=== PATIENT | female | born 1995 | race Caucasian/White ===

== ENCOUNTER → 2016-07-25 | Outpatient (CLI) | payer BC | LOC: M SMT 08:53 | PROVIDERS: ATTEND Specialist | DX: N91.1 Secondary amenorrhea (principal) ==

== ENCOUNTER → 2016-07-28 | Outpatient (CLI) | payer BC ==
[~2016-07-28] MED LIST: HYDR-3713 PO
== END ==
LOC: M SMT 08:03
PROVIDERS: ATTEND Specialist
DX: N91.1 Secondary amenorrhea (principal)

== ENCOUNTER → 2016-07-31 | Day surgery (SDC) | payer BC ==
[~2016-07-31] VITALS: Ht 165.1 cm; Wt 57.2 kg
[~2016-07-31] MED LIST changes: +ACETAMINOPHEN 500 MG TAB PO ONE; +ACETYLCHOLINE OPHTH SOLN 1% 2ML (MIOCHOL-E) As Ordered ONE; +BALANCED SALT IRRIGATION SOLUTION 500ML BAG (FOR OR EYE MACHINE) As Ordered ONE; +CEFUROXIME 1MG/0.1ML INTRACAMERAL INJ As Ordered ONE; +HEALON DUET (HEALON 10MG/ML 0.55ML & HEALON ENDOCOAT 30MG/ML 0.85ML) As Ordered ONE; +KETOROLAC 60 MG/2 ML VIAL (J1885) As Ordered ONE; +LIDOCAINE 0.75%/EPINEPHRINE 0.025% IN BSS 1ML SYR INTRACAMERAL (OR ONLY) As Ordered ONE; +LIDOCAINE 2% INJ 100 MG/5 ML SDV (FOR ANES.) As Ordered ONE; +LR 1,000 ML IV ONE; +LR 1,000 ML IV SCH; +METOCLOPRAMIDE INJ 10MG/2ML VIAL (J2765) As Ordered ONE; +MIDAZOLAM INJ 2 MG/2 ML VIAL (J2250) As Ordered ONE; +ONDANSETRON 4MG/2ML VIAL (J2405) As Ordered ONE; +POVIDONE-IODINE 5% OPHTH PREP SOL 30ML As Ordered ONE; +PROPOFOL 200 MG/20 ML VIAL As Ordered ONE; +dexameTHASONE 4 MG/ML 1ML VIAL (J1100) As Ordered ONE; +fentaNYL 100 MCG/2 ML INJECTION (J3010) As Ordered ONE
[2016-07-31 15:45] VITALS: BP 107/64
--- NOTE | 2016-07-31 21:32 | RO ---
DATE OF PROCEDURE: 07/31/2016 PREPROCEDURE DIAGNOSIS: Embryonic demise. POSTPROCEDURE DIAGNOSIS: Embryonic demise. PROCEDURE: Dilation, evacuation and curettage (D, E and C). SURGEON: Dr. Magno Garcia FRYER OPERATOR: ANESTHESIA: General by LMA. ESTIMATED BLOOD LOSS: Minimal. URINE OUTPUT: 200 mL. FINDINGS: Moderate amount of products of conception. DESCRIPTION OF PROCEDURE: The patient was taken to the operating room where LMA anesthesia was induced. She was prepped and draped in a sterile fashion in the dorsal lithotomy position. The bladder was emptied with a catheter. A speculum was placed in the vagina. Anterior lip of the cervix was grasped with a tenaculum. The cervix was dilated with tapered dilators. A #8 mm suction curette was placed through the internal os. The suction device was activated and the curette was gently rotated, the products of conception were noted coming through the suction tubing. Sharp curettage was performed. Uterine cavity was deemed to be empty. All instruments were removed. Sponge and instrument counts were correct. The patient went to the recovery room in stable condition.
== END | disposition home or self-care (01) ==
LOC: M SDC 10:58
PROVIDERS: ATTEND Specialist
DX: O02.1 Missed abortion (principal)
CPT/HCPCS: 36415; 59820; 85014; 85018; 86850; 86900; 86901; 88305; 88342; J1100; J1885; J2250; J2405; J2765; J3010

== ENCOUNTER 2016-08-05 20:15 | Emergency (ER) | payer BC ==
[~2016-08-05] VITALS: Ht 165.1 cm; Wt 55.3 kg
[2016-08-05] MEDS ORDERED: NS 1,000 ML IV ONE (21:00)
[2016-08-05] MEDS ORDERED: KETOROLAC 30 MG/ML VIAL (J1885) IV ONE (21:00)
--- NOTE | 2016-08-05 22:00 | REPUSA ---
Clinical history: bleeding status post dilatation and curettage. Findings: Real-time transabdominal ultrasound images of the pelvis were obtained. An anteverted uteru s is noted, measuring 8.0 x 4.4 x 5.6 cm. The uterus demonstrates normal echotexture and echogenicit y. The endometrial stripe is dilated measuring 17 mm in diameter. Diffuse increased vascularity is se en throughout the endometrium. The right ovary measures 2.2 x 1.2 x 1.5 cm. The left ovary measures 3.4 x 2.0 x 2.4 cm. No adnexal masses are seen. Color Doppler flow is seen within both ovaries. There is no evidence of free fluid. Impression: Thickened, echogenic endometrial cavity with increased vascularity.. This is nonspecific, and could be postoperative in nature. Follow-up is suggested as clinically indicated.
[2016-08-05 22:05] LABS: BASO % 0.4 % (0.0-1.0); EOS # 0.5 K/mm3 (0.0-0.50); EOS % 4.1 % (0.0-3.0); LARGE UNSTAINED CELL # 0.2 K/mm3 (0.0-0.4); LARGE UNSTAINED CELL % 1.7 % (0.0-4.0); LYMPH # 2.1 K/mm3 (1.5-6.5); LYMPH % 14.9 % (24.0-44.0); MEAN CORPUSCULAR HEMOGLOBIN 30.3 pg (27.0-33.0); MEAN CORPUSCULAR HGB CONC 33.7 g/dl (32.0-36.5); MONO # 0.6 K/mm3 (0.0-0.8); MONO % 4.7 % (0.0-5.0); NEUTROPHILS # 9.4 K/mm3 (1.8-7.7); NEUTROPHILS % 74.2 % (36.0-66.0); PLATELET COUNT, AUTOMATED 290 k/mm3 (150-450); WHITE BLOOD COUNT 12.6 K/mm3 (4.0-10.0)
[2016-08-05 22:24] LABS: ANION GAP 9 MEQ/L (8-16); BLOOD UREA NITROGEN 9 MG/DL (7-18); CALCIUM LEVEL 9.3 MG/DL (8.5-10.1); CARBON DIOXIDE LEVEL 27 MEQ/L (21-32); CHLORIDE LEVEL 106 MEQ/L (98-107); CREATININE FOR GFR 0.69 MG/DL (0.55-1.02); GLOMERULAR FILTRATION RATE > 60.0 (>60); GLUCOSE, FASTING 88 MG/DL (70-105); SODIUM LEVEL 142 MEQ/L (136-145)
[2016-08-05] MEDS ORDERED: HYDR-3713 PO (22:37)
[2016-08-05 22:44] VITALS: BP 112/77
[2016-08-05] MEDS ORDERED: NORCO 5/325MG TABLET (BULK FOR ED) PO ONE (22:45)
--- NOTE | 2016-08-13 09:55 | ED PDOC ---
Post-Departure Follow-Up dr ramirez faxed formal report of pelvic us for fu Tammi Hobbs MD August 13, 2016 09:55
== END 2016-08-05 22:52 | disposition home or self-care (01) ==
LOC: M ED 21:38
DX: N93.9 Abnormal uterine and vaginal bleeding, unspecified (principal); Z98.890 Other specified postprocedural states
CPT/HCPCS: 76856; 80048; 85025; 86850; 86900; 86901; 99283; J1885

== ENCOUNTER → 2016-12-10 | Outpatient (CLI) | payer BC ==
[~2016-12-10] MED LIST changes: -ACETAMINOPHEN 500 MG TAB PO ONE; -ACETYLCHOLINE OPHTH SOLN 1% 2ML (MIOCHOL-E) As Ordered ONE; -BALANCED SALT IRRIGATION SOLUTION 500ML BAG (FOR OR EYE MACHINE) As Ordered ONE; -CEFUROXIME 1MG/0.1ML INTRACAMERAL INJ As Ordered ONE; -HEALON DUET (HEALON 10MG/ML 0.55ML & HEALON ENDOCOAT 30MG/ML 0.85ML) As Ordered ONE; -KETOROLAC 60 MG/2 ML VIAL (J1885) As Ordered ONE; -LIDOCAINE 0.75%/EPINEPHRINE 0.025% IN BSS 1ML SYR INTRACAMERAL (OR ONLY) As Ordered ONE; -LIDOCAINE 2% INJ 100 MG/5 ML SDV (FOR ANES.) As Ordered ONE; -LR 1,000 ML IV ONE; -LR 1,000 ML IV SCH; -METOCLOPRAMIDE INJ 10MG/2ML VIAL (J2765) As Ordered ONE; -MIDAZOLAM INJ 2 MG/2 ML VIAL (J2250) As Ordered ONE; -ONDANSETRON 4MG/2ML VIAL (J2405) As Ordered ONE; -POVIDONE-IODINE 5% OPHTH PREP SOL 30ML As Ordered ONE; -PROPOFOL 200 MG/20 ML VIAL As Ordered ONE; -dexameTHASONE 4 MG/ML 1ML VIAL (J1100) As Ordered ONE; -fentaNYL 100 MCG/2 ML INJECTION (J3010) As Ordered ONE
[2016-12-10 18:08] LABS: BASO % 0.4 % (0.0-1.0); EOS # 0.3 10^3/uL (0.0-0.50); EOS % 2.6 % (0.0-3.0); IMMATURE GRANULOCYTE % 0.5 % (0-0); LYMPH # 1.4 10^3/uL (1.5-6.5); MEAN CORPUSCULAR HEMOGLOBIN 28.9 pg (27.0-33.0); MEAN CORPUSCULAR HGB CONC 33.2 g/dl (32.0-36.5); MEAN CORPUSCULAR VOLUME 87.3 fl (80.0-96.0); MONO # 0.9 10^3/uL (0.0-0.8); MONO % 9.7 % (0.0-5.0); NEUTROPHILS # 6.8 10^3/uL (1.8-7.7); NEUTROPHILS % 71.8 % (36.0-66.0); PLATELET COUNT, AUTOMATED 272 10^3/uL (150-450); RED CELL DISTRIBUTION WIDTH 12.8 % (11.5-14.5); WHITE BLOOD COUNT 9.5 10^3/uL (4.0-10.0)
[2016-12-10 18:18] LABS: ADD MORPHOLOGY? NO
[2016-12-12 09:50] LABS: HBsAg Prenatal NEGATIVE (NEGATIVE)
== END ==
LOC: M SMT 15:09
PROVIDERS: ATTEND Specialist
DX: Z34.81 Encounter for supervision of other normal pregnancy, first trimester (principal)

== ENCOUNTER → 2017-09-18 | Outpatient (REF) | payer BC | LOC: M LAB REF 12:57 | DX: Z34.82 Encounter for supervision of other normal pregnancy, second trimester (principal); Z3A.00 Weeks of gestation of pregnancy not specified | CPT/HCPCS: 87086 ==

== ENCOUNTER → 2017-10-21 | Outpatient (CLI) | payer BC | LOC: M RAD 11:33 | DX: O28.3 Abnormal ultrasonic finding on antenatal screening of mother (principal); Z36.89 Encounter for other specified antenatal screening; Z3A.18 18 weeks gestation of pregnancy | CPT/HCPCS: 76811 ==

== ENCOUNTER → 2017-11-25 | Outpatient (CLI) | payer BC | LOC: M RAD 10:37 | DX: Z36.89 Encounter for other specified antenatal screening (principal); Z3A.23 23 weeks gestation of pregnancy | CPT/HCPCS: 76816 ==

== ENCOUNTER → 2017-12-09 | Outpatient (CLI) | payer BC ==
[2017-12-09 17:48] LABS: HEMATOCRIT 36.4 % (36.0-47.0); MEAN CORPUSCULAR HEMOGLOBIN 30.3 pg (27.0-33.0); MEAN CORPUSCULAR VOLUME 91.9 fl (80.0-96.0); PLATELET COUNT, AUTOMATED 287 10^3/uL (150-450); RED BLOOD COUNT 3.96 10^6/uL (4.00-5.40); RED CELL DISTRIBUTION WIDTH 12.9 % (11.5-14.5); WHITE BLOOD COUNT 12.4 10^3/uL (4.0-10.0)
[2017-12-09 18:37] LABS: GLUCOSE CHALLENGE TEST 1 HOUR 55 MG/DL (LESS THAN 140)
== END ==
LOC: M SMT 13:56
DX: Z34.82 Encounter for supervision of other normal pregnancy, second trimester (principal); Z36.89 Encounter for other specified antenatal screening
CPT/HCPCS: 82950

== ENCOUNTER → 2018-02-24 | Outpatient (REF) | payer BC, MEDICAID | LOC: M LAB REF 13:09 | DX: Z34.83 Encounter for supervision of other normal pregnancy, third trimester (principal) | CPT/HCPCS: 87186 ==

== ENCOUNTER 2018-03-09 10:44 | Inpatient (IN) | payer BC, OTHER, MEDICAID ==
[2018-03-09] MEDS: LR 1,000 ML IV (11:30)
[2018-03-09] MEDS: LR 800 ML IV (11:30)
[2018-03-09 12:40] LABS: HEMATOCRIT 33.9 % (36.0-47.0); HEMOGLOBIN 11.9 g/dl (12.0-15.5); MEAN CORPUSCULAR HEMOGLOBIN 29.8 pg (27.0-33.0); MEAN CORPUSCULAR HGB CONC 35.1 g/dl (32.0-36.5); PLATELET COUNT, AUTOMATED 246 10^3/uL (150-450); RED BLOOD COUNT 3.99 10^6/uL (4.00-5.40); RED CELL DISTRIBUTION WIDTH 12.5 % (11.5-14.5); WHITE BLOOD COUNT 17.7 10^3/uL (4.0-10.0)
[2018-03-09] MEDS: AMPICILLIN SOD 2 GM in D5W MINI-BAG PLUS 100 ML IV (13:00)
[2018-03-09] MEDS ORDERED: FENTANYL 2MCG/ML ROPIVACAINE 0.2% IN 0.9% NACL 100ML IVBAG As Ordered (13:22)
[2018-03-09] MEDS ORDERED: REFRIGERATOR IV KEYS XX (14:30)
[2018-03-09] MEDS ORDERED: NALOXONE INJ 0.4 MG/1 ML VIAL (J2310) IV (14:30)
[2018-03-09] MEDS ORDERED: ePHEDrine SULFATE 25 MG/5 ML(5MG/ML) SYRINGE IV (14:30)
[2018-03-09] MEDS ORDERED: ONDANSETRON 4MG/2ML VIAL (J2405) IV (14:30)
[2018-03-09] MEDS ORDERED: EPIDURAL COMMENT XX (14:30)
[2018-03-09] MEDS ORDERED: EPIDURAL/PCA KEYS XX (14:30)
[2018-03-09] MEDS ORDERED: FENTANYL/ROPIVACAINE/NACL BAG 100 ML EPIDURAL (14:30)
[2018-03-09] MEDS ORDERED: diphenhydrAMINE INJ 50MG/ML VIAL (J1200) IV (14:30)
[2018-03-09] MEDS: AMPICILLIN SOD 1 GM in D5W 50 ML IV (16:59)
[2018-03-09] MEDS ORDERED: OXYTOCIN 30 UNITS IN 0.9% NaCl 500ML IV BAG (J2590) As Ordered (18:12)
[2018-03-09] MEDS: OXYTOCIN DRIP 30 UNITS in APPROPRIATE DILUENT 1 EA IV ×2 (18:18→19:15)
[2018-03-09] MEDS ORDERED: METHYLERGONOVINE MALEATE 0.2 MG TAB PO (19:15)
[2018-03-09] MEDS ORDERED: DOCUSATE SODIUM 100 MG CAP PO (19:15)
[2018-03-09] MEDS ORDERED: DIBUCAINE 1% OINTMENT 30GM TOP (19:15)
[2018-03-09 19:34] LABS: CORD GAS ABE A -3.9; CORD GAS HCO3 A 23.1 MEQ/L; CORD GAS O2 SAT A 45.9 %; CORD GAS PCO2 A 49.1 mmHg; CORD GAS PO2 A 21.2 mmHg; CORD GAS SBC A 20.1 MEQ/L; CORD GAS TCO2 A 24.6 MEQ/L
[2018-03-09 19:36] LABS: CORD GAS ABE V -4.5; CORD GAS HCO3 V 21.5 MEQ/L; CORD GAS O2 SAT V 61.1 %; CORD GAS PCO2 V 42.8 mmHg; CORD GAS PH V 7.318 UNITS; CORD GAS PO2 V 26.1 mmHg; CORD GAS SBC V 19.9 MEQ/L; CORD GAS TCO2 V 22.8 MEQ/L
[2018-03-10] MEDS: ACETAMINOPHEN 500 MG TAB PO (06:41)
[2018-03-10] MEDS: RHOGAM 300 MCG (1500 IU) INJ (J2790) IM (08:03)
[2018-03-10] MEDS: MEASLES,MUMPS,RUBELLA VACCINE INJ (MMR-II) (90707) SC (08:03)
[2018-03-10] MEDS: IBUPROFEN 800 MG TAB PO (08:37)
[2018-03-10] MEDS: PRENATAL VITAMINS CHEWABLE TABLET PO (08:37)
[2018-03-11] MEDS: PRENATAL VITAMINS CHEWABLE TABLET PO (08:15)
== END 2018-03-11 10:40 | disposition home or self-care (01) | DRG 560 ==
LOC: M LDO 10:44 → M LDI 11:24 → M OBS 22:22
PROVIDERS: Obstetrics & Gynecology
PROC: 10E0XZZ Delivery of Products of Conception, External Approach (ICD-10-PCS; principal; 2018-03-09)
DX: O80 Encounter for full-term uncomplicated delivery (principal); Z37.0 Single live birth; Z3A.38 38 weeks gestation of pregnancy

== ENCOUNTER → 2018-07-21 | Outpatient (REF) | payer BC, OTHER ==
[~2018-07-21] MED LIST changes: +IBUP-1114 PO; +MAPA500T2 PO; +PRENTAB9 PO; +TUMS500C PO
== END ==
LOC: M LAB REF 13:16
PROVIDERS: ATTEND Advanced Practice Midwife
DX: Z12.4 Encounter for screening for malignant neoplasm of cervix (principal); R87.612 Low grade squamous intraepithelial lesion on cytologic smear of cervix (LGSIL)

== ENCOUNTER → 2018-07-21 | Outpatient (CLI) | payer BC, OTHER | LOC: M SMT 09:50 | PROVIDERS: ATTEND Advanced Practice Midwife | DX: Z13.79 Encounter for other screening for genetic and chromosomal anomalies (principal) ==

== ENCOUNTER → 2018-08-17 | Outpatient (REF) | payer BC, OTHER | LOC: M LAB REF 10:21 | PROVIDERS: ATTEND Obstetrics & Gynecology | DX: N87.0 Mild cervical dysplasia (principal) ==

== ENCOUNTER → 2019-09-08 | Outpatient (REF) | payer OTHER ==
[2019-09-08 18:06] LABS: HEMATOCRIT 35.6 % (36.0-47.0); MEAN CORPUSCULAR HEMOGLOBIN 30.4 pg (27.0-33.0); MEAN CORPUSCULAR HGB CONC 33.7 g/dl (32.0-36.5); MEAN CORPUSCULAR VOLUME 90.1 fl (80.0-96.0); PLATELET COUNT, AUTOMATED 276 10^3/uL (150-450); RED BLOOD COUNT 3.95 10^6/uL (4.00-5.40); WHITE BLOOD COUNT 10.4 10^3/uL (4.0-10.0)
[2019-09-08 19:32] LABS: CHLAMYDIA DNA AMPLIFICATION NEGATIVE (NEGATIVE); GC DNA AMPLIFICATION NEGATIVE (NEGATIVE)
[2019-09-09 10:00] LABS: HEPATITIS C VIRUS ABY INDEX 0.3 INDEX (<0.8); HIV 1&2 SCREEN CENTAUR NEGATIVE (NEGATIVE)
== END ==
LOC: M PLALAB 15:03
PROVIDERS: ATTEND Advanced Practice Midwife
DX: Z34.81 Encounter for supervision of other normal pregnancy, first trimester (principal); Z3A.00 Weeks of gestation of pregnancy not specified

== ENCOUNTER → 2019-09-14 | Outpatient (REF) | payer OTHER | LOC: M SFHCWAGY 17:06 | PROVIDERS: ATTEND Obstetrics & Gynecology | DX: Z12.4 Encounter for screening for malignant neoplasm of cervix (principal); N88.8 Other specified noninflammatory disorders of cervix uteri ==

== ENCOUNTER → 2019-11-02 | Outpatient (REF) | payer OTHER ==
[~2019-11-02] MED LIST changes: +ACET-683 PO
[2019-12-13 10:01] LABS: ADENOVIRUS ANTIBODY Negative (Neg:<1:8); ANTI PARVO VIRUS LEVEL IgM 0.1 index (0.0-0.8); COXSACKIE TYPE A-16 IgM Negative titer (Neg:<1:10); COXSACKIE TYPE A-24 IgM Negative titer (Neg:<1:10); COXSACKIE TYPE A-7 IgM Negative titer (Neg:<1:10); COXSACKIE TYPE A-9 IgM Negative titer (Neg:<1:10); COXSACKIE TYPE B1 1:16 (Neg:<1:8); COXSACKIE TYPE B4 1:16 (Neg:<1:8); COXSACKIE TYPE B5 1:32 (Neg:<1:8); CYTOMEGALOVIRUS IgM ANTIBODY 66.2 AU/mL (0.0-29.9); HERPES ZOSTER, VARICELLA IgG 453 index (Immune >165); HERPES ZOSTER, VARICELLA IgM 1.51 index (0.00-0.90); HSV TYPE I IgM AB <1:10 titer (<1:10); HSV TYPE II IgG SPECIFIC <0.91 index (0.00-0.90); HSV TYPE II IgM ABY <1:10 titer (<1:10); TOXOPLASMA IgG ABY <3.0 IU/mL (0.0-7.1)
== END ==
LOC: M PLALAB 15:12
PROVIDERS: ATTEND Specialist
DX: Z34.80 Encounter for supervision of other normal pregnancy, unspecified trimester (principal)

== ENCOUNTER → 2019-11-02 | Outpatient (CLI) | payer OTHER ==
--- NOTE | 2019-12-05 10:26 | REP ---
OBSTETRIC SONOGRAPHY HISTORY: Supervision of , second trimester study. FINDINGS: Scanning through the gravid uterus demonstrates a single living intrauterine gestation in oblique lie. heart rate is recorded at 161 beats per minute. A somewhat heterogeneous posterior placenta is seen without evidence of previa. Amniotic fluid is subjectively normal. The fetus is abnormal. There is some fluid in the chest cavity. There is a large septated cystic lesion extending along the posterior neck and along the posterior aspect of the thoracolumbar spine suggesting cystic hygroma. There is diffuse scalp and thoracoabdominal subcutaneous edema consistent with hydrops. The following anatomic structures are identified and felt to be unremarkable: Cisterna magna, cavum septum, thalami, left-sided stomach, three- vessel cord, abdominal wall cord insertion, upper and lower extremities. Face and lips could not be seen optimally. Kidneys are questionably echogenic. Outflow tracts and four chamber heart views could not be achieved optimally. BIOMETRY CHART BPD 33 mm 16 weeks 1 day Head Circumference 128 mm 16 weeks 4 days Abdominal Circumference 113 mm 17 weeks 1 day Femur Length 22 mm 16 weeks 5 days Humeral Length 22 mm 16 weeks 4 days Estimated Weight 170 g 2nd percentile IMPRESSION: Single intrauterine gestation at 16 weeks 5 days by today composite criteria. Estimated date of delivery (LIN) by todays sonography 04/13/2020. Abnormal fetus with evidence of hydrops, diffuse subcutaneous edema, pleural fluid, and probable large cystic hygroma. Preliminary report is provided at the time of the exam. MTDD
== END ==
LOC: M WHC 08:58
PROVIDERS: ATTEND Specialist
DX: O35.9XX0 Maternal care for (suspected) fetal abnormality and damage, unspecified, not applicable or unspecified (principal); Z3A.16 16 weeks gestation of pregnancy

== ENCOUNTER → 2019-12-09 | Outpatient (CLI) | payer OTHER ==
--- NOTE | 2019-12-14 08:23 | REP ---
OBSTETRIC SONOGRAPHY HISTORY: Supervision of . Limited study. FINDINGS: Scanning through the urine filled bladder and gravid uterus demonstrates a single intrauterine fetus in a transverse, head to the maternal right lie. motion was not identified. No cardiac activity was identified. A posterior placenta is seen. Amniotic fluid is subjectively normal. Closed cervical length is 3.5 cm viewed transabdominally. A large cystic area is seen over the thorax consistent with cystic hygroma posteriorly. There is considerable subcutaneous diffuse edema in the fetus and fluid is seen in the chest cavity. IMPRESSION: Findings consistent with intrauterine demise. MTDD
== END ==
LOC: M WHC 13:28
PROVIDERS: ATTEND Obstetrics & Gynecology
DX: O36.4XX0 Maternal care for intrauterine death, not applicable or unspecified (principal); Z3A.00 Weeks of gestation of pregnancy not specified

== ENCOUNTER 2019-12-10 08:27 | Inpatient (IN) | payer OTHER ==
[2019-12-10] VITALS (9 sets, daily range): BP systolic 108–126; BP diastolic 62–74
[~2019-12-10] VITALS: Ht 165.1 cm; Wt 63.8 kg
[~2019-12-10 08:27] MED LIST changes: -ACET-683 PO
[2019-12-10] MEDS ORDERED: PROMETHAZINE INJ 25 MG/ML VIAL (J2550) IV PRN (11:15)
[2019-12-10] MEDS ORDERED: BUTORPHANOL 2 MG/ML INJ (J0595) IV PRN (11:15)
[2019-12-10] MEDS ORDERED: miSOPROStol 100 MCG TAB (S0191) PO ONE (11:30)
[2019-12-10 11:43] LABS: HEMATOCRIT 34.6 % (36.0-47.0); HEMOGLOBIN 11.7 g/dl (12.0-15.5); MEAN CORPUSCULAR HEMOGLOBIN 30.1 pg (27.0-33.0); MEAN CORPUSCULAR HGB CONC 33.8 g/dl (32.0-36.5); MEAN CORPUSCULAR VOLUME 88.9 fl (80.0-96.0); PLATELET COUNT, AUTOMATED 221 10^3/uL (150-450); RED BLOOD COUNT 3.89 10^6/uL (4.00-5.40); WHITE BLOOD COUNT 8.5 10^3/uL (4.0-10.0)
--- NOTE | 2019-12-10 12:46 | HPEPDOC ---
Obstetrical History & Physical General Date of Admission Dec 10, 2019 at 08:27 History of Present Illness Cora is a 24yo with known IUFD at 23w4d by lmp c/w early u/s presenting for scheduled IOL. She was found to have significant anomalies on her anatomy scan (hydrops, cystic hygroma) and then NIPT confirmed Mcgill's Syndrome (Monosomy X). She was seen at [facility] for MFM consult, and given the anomalies, it was presumed that at some point demise would occur. On 12/08, she presented to clinic having not felt movement for several days, and there was noted to be no further cardiac activity. Formal ultrasound then subsequently confirmed this. She has had no vaginal bleeding, no cramping, no loss of fluid. No fevers/chills. No complaints whatsoever today. Chief Complaint: IUFD Information Provided By: Patient Care Care: Good Care Dating Final EDC: Apr 03, 2020 Antepartum Course Diagnos(e)s Monosomy X resulting in hydrops, cystic hygroma and ultimately IUFD Height (inches): 65 Pre- weight (lbs.): 132 Admission Weight (lbs.): 140 Change in Weight (lbs.): 8 Past Medical History Past Obstetrical History : Past Obstetrical History: Multigravida (2017 SAB, 2016, 2018 uncompli cated term 6.5lb male) [employer] History: Human papillomavirus(HPV) Past Medical History Medical History Benign Surgical History: Dilatation and Curettage Family History Significant Family History: Other (patient's mother had breast cancer age 47) Social History Marital Status: Family situation: Spouse/partner home Psychosocial History: No pertinent psych hx * Smoker: non-smoker Alcohol: Denies Drugs: denies Allergies Coded Allergies: No Known Allergies (Unverified , 07/31/16) Physical Examination Physical Examination GENERAL: Alert and oriented times three. ABDOMEN: Gravid and non-tender to touch. FETUS: Is breech by TAUS yesterday EXTREMITIES: No edema of BLE Vital Signs/I&O Vital Signs Date Time Temp Pulse Resp B/P (MAP) Pulse Ox O2 Delivery O2 Flow Rate FiO2 12/10/19 11:27 70 114/69 (84) Room Air 12/10/19 09:39 97.7 16 Laboratory Data 24H LABS Laboratory Tests 2 12/10/19 09:09: Nucleated Red Blood Cells % (auto) 0.0 CBC/BMP Laboratory Tests 12/10/19 09:09 Pertinent Laboratoy Data Blood Type: AB+ RBC Antibody Screen: Negative Hepatitis B: Negative Hepatitis C: Negative Rapid Plasma Reagin: Nonreactive Rubella: Immune Chlamydia/Gonorrhea: Negative Diag/Inter Therapy NIPT: Monosomy X. Infectious disease workup negative for: coxsackie virus, parvovirus, HSV, toxoplasma, adenovirus. Varicella IGM was elevated slightly and CMV IgM was elevated (though IgG was also elevated) Anatomy Ultrasound Ultrasound Date: Nov 02, 2019 Placenta Location: Posterior Normal Anatomy: No ( hydrops, cystic hygroma) Placenta Previa: No Other Ultrasounds 12/09/19: IUFD, hydrops, pleural fluid, cystic hygroma Steroid Therapy Steroid Therapy: No Vaginal Examination Dilation: Fingertip Effacement: 50% Station: -3 Cervical Consistency: Medium Cervical Position: Middle Presentation: Breech presentation Assessment/Plan Assessment Cora is a 24yo with known IUFD at 23w4d by lmp c/w early u/s presenting for scheduled IOL. She was found to have significant anomalies on her anatomy scan (hydrops, cystic hygroma) and then NIPT confirmed Mcgill's Syndrome (Monosomy X). Vitals wnl, benign exam. Fetus was breech on TAUS yesterday. Plan Admit and orient. Counseled and consented Diet: regular CBC and type and screen, saline lock Counseled on induction of labor (IOL), 100mcg cytotec placed vaginally. Will re- evaluate in 6 hours (1730) for repeat dosing. If no effective ctx at that point, would increase dose to 200mcg. Anticipate normal spontaneous delivery () IV stadol and phenergan for pain control if desired, though patient can also elect for an epidural if she chooses MD Teresa Macias Katrina D MD Dec 10, 2019 12:46
[2019-12-10] MEDS ORDERED: miSOPROStol 100 MCG TAB (S0191) PV ONE (17:45)
--- NOTE | 2019-12-10 18:07 | IPNPDOC ---
Text Note Date of Service The patient was seen on 12/10/19. NOTE Intrapartum Note Pt doing well, feels regular cramping. Was in the tub for a half hour and that was comfortable for her. Not requesting pain meds yet. Vitals wnl, afebrile Ctx q1min SCE: 375/-2, bulging of lower segment noted with cervix still a bit posterior. 100mcg cytotec placed PV. Will continue to observe Plan to recheck in 6hr or earlier as indicated Pt can have IV stadol/phenergan if she desires or epidural Safe to proceed Cathy Moore MD VS,Kristyn, I+O VS, Kristyn I+O Laboratory Tests 12/10/19 09:09 Vital Signs Date Time Temp Pulse Resp B/P (MAP) Pulse Ox O2 Delivery O2 Flow Rate FiO2 12/10/19 17:53 97.8 59 18 120/65 (83) Room Air Cathy Moore MD Dec 10, 2019 18:06
[2019-12-10] MEDS ORDERED: OXYTOCIN 30 UNITS IN 0.9% NaCl 500ML IV BAG (J2590) As Ordered ONE (18:57)
[2019-12-10] MEDS ORDERED: OXYTOCIN DRIP 30 UNITS in IV 1 EA IV SCH (19:22)
[2019-12-10] MEDS ORDERED: ACETAMINOPHEN 500 MG TAB PO PRN (19:30)
[2019-12-10] MEDS ORDERED: RHOGAM 300 MCG (1500 IU) INJ (J2790) IM SCH (19:30)
[2019-12-10] MEDS ORDERED: MEASLES,MUMPS,RUBELLA VACCINE INJ (MMR-II) (90707) SC SCH (19:30)
[2019-12-10] MEDS ORDERED: DIBUCAINE 1% OINTMENT 30GM TOP PRN (19:30)
[2019-12-10] MEDS ORDERED: IBUPROFEN 800 MG TAB PO PRN (19:30)
[2019-12-10] MEDS ORDERED: ACETAMINOPHEN TAB 650MG DOSE (2X325MG) PO PRN (19:30)
[2019-12-10] MEDS ORDERED: DOCUSATE SODIUM 100 MG CAP PO PRN (19:30)
[2019-12-10] MEDS ORDERED: IBUPROFEN 600MG TAB PO PRN (19:30)
[2019-12-10] MEDS ORDERED: ACET-683 PO (21:24)
--- NOTE | 2019-12-10 22:39 | DNPDOC ---
[facility] Delivery Note Delivery Note DATE OF DELIVERY: 12/10/2019 PREDELIVERY DIAGNOSIS: IUFD at 23w4d in the setting of known Monosomy X, hydrops, cystic hygroma POST DELIVERY DIAGNOSIS: Delivered. PROCEDURE: Spontaneous vaginal delivery ORTHOTIC/PROSTHETIC PRACTITIONER: Dr. Cathy Moore MD ANESTHESIA: none ESTIMATED BLOOD LOSS: 150 mL. FINDINGS: 640g female edematous appearing , Score 0/0 DELIVERY SUMMARY: Cora is a 24yo [id number] s/p uncomplicated spontaneous vaginal delivery of an IUFD at 23w4d, in the setting of known Monosomy X with hydrops and cystic hygroma, after undergoing induction of labor. She received a dose of 100mcg PV cytotec and then very soon after re-dose of another 100mcg PV cytotec, she experienced rupture of membranes and went very quickly from 3cm to complete. She pushed effectively and the buttocks/legs of the infant delivered. I gently rotated the body so that the back was up, and with subsequent pushes, the arms of the infant delivered followed by the head. There was global edema noted. Cord was clamped and cut by FOB, handed up to the patient to hold. At that point I felt for the placenta, which was located in the lower uterine segment/upper vagina. I asked the patient to push, and she very effectively expelled the placenta. On inspection, it appeared intact. Inspection of perineum and vagina revealed no lacerations. Her bleeding was scant with EBL likely less than 150ml total. Counts were correct x2. I then performed bedside TAUS to evaluate uterine lining which was 2cm thick at maximal dimension, with no obvious retained products. Patient was doing well when I left the room. MD Teresa Macias Katrina D MD Dec 10, 2019 22:39
--- NOTE | 2019-12-10 22:44 | DS.PDOC ---
Discharge Summary General Date of Admission Dec 10, 2019 at 08:27 Date of Discharge Dec 10, 2019 Discharge Summary PROCEDURES PERFORMED DURING STAY: spontaneous vaginal delivery after induction of labor ADMITTING DIAGNOSES: 1. IUFD at 23w4d in the setting of known Monosomy X with hydrops and cystic hygroma DISCHARGE DIAGNOSES: 1. IUFD at 23w4d in the setting of known Monosomy X with hydrops and cystic hygroma, delivered COMPLICATIONS/CHIEF COMPLAINT: Induction for IUFD. HISTORY OF PRESENT ILLNESS/HOSPITAL COURSE: Cora is a 24yo [id number] s/p uncomplicated spontaneous vaginal delivery of an IUFD at 23w4d, in the setting of known Monosomy X with hydrops and cystic hygroma, after undergoing induction of labor. A few hours after delivery, when she was noted to be hemostatic with normal vital signs and exam, she was discharged home per her desire. DISCHARGE MEDICATIONS: Please see below. ALLERGIES: Please see below. PHYSICAL EXAMINATION ON DISCHARGE: VITAL SIGNS: Please see below. GENERAL: WDWN, NAD, resting comfortably Abdomen: soft, NTTP Extremities: no edema of BLE LABORATORY DATA: Please see below. ACTIVITY: As tolerated, vaginal rest 4 weeks DIET: regular DISPOSITION: home DISCHARGE PLAN/INSTRUCTIONS: 1. Discharge to home with follow up in clinic in 2-4 weeks, pt to call for appointment 2. Discussed return precautions for heavy vaginal bleeding, malodorous vaginal discharge, fevers/chills, increasing abdominal pain DISCHARGE CONDITION: Stable TIME SPENT ON DISCHARGE: Greater than 20 minutes. Cathy Moore MD Vital Signs/I&Os Vital Signs Date Time Temp Pulse Resp B/P (MAP) Pulse Ox O2 Delivery O2 Flow Rate FiO2 12/10/19 21:58 64 18 111/71 (84) 12/10/19 19:33 98.3 12/10/19 17:53 Room Air Laboratory Data Labs 24H Laboratory Tests 2 12/10/19 09:09: Nucleated Red Blood Cells % (auto) 0.0 CBC/BMP Laboratory Tests 12/10/19 09:09 Discharge Medications Scheduled PRN Acetaminophen (Acetaminophen) 500 Mg Tablet, 1,000 MG PO Q6HP PRN for PAIN LEVEL 6-10 Allergies Coded Allergies: No Known Allergies (Unverified , 07/31/16) Cathy Moore MD Dec 10, 2019 22:44
[2019-12-11] MEDS ORDERED: PRENATAL VITAMINS CHEWABLE TABLET PO SCH (09:00)
== END 2019-12-10 22:01 | disposition home or self-care (01) | DRG 560 ==
LOC: M LDI 08:27
PROVIDERS: ADMIT Obstetrics & Gynecology; ATTEND Obstetrics & Gynecology
PROC: 10E0XZZ Delivery of Products of Conception, External Approach (ICD-10-PCS; principal; 2019-12-10)
PROC: 3E0DXGC Introduction of Other Therapeutic Substance into Mouth and Pharynx, External Approach (ICD-10-PCS; 2019-12-10)
DX: O35.1XX9 Maternal care for (suspected) chromosomal abnormality in fetus, other fetus (principal); Z37.1 Single stillbirth; D18.1 Lymphangioma, any site; Z3A.23 23 weeks gestation of pregnancy; Q96.9 Turner's syndrome, unspecified; O26.899 Other specified pregnancy related conditions, unspecified trimester

== ENCOUNTER → 2021-01-08 | Outpatient (CLI) | payer OTHER ==
[~2021-01-08] MED LIST changes: +ACET-683 PO
[2021-01-08 15:55] LABS: BASO # 0.1 10^3/uL (0.0-0.2); BASO % 0.4 % (0.0-1.0); EOS # 0.1 10^3/uL (0.0-0.5); HEMATOCRIT 37.3 % (36.0-47.0); HEMOGLOBIN 12.5 g/dl (12.0-15.5); LYMPH # 2.5 10^3/uL (1.5-5.0); LYMPH % 19.5 % (24.0-44.0); MEAN CORPUSCULAR HEMOGLOBIN 29.5 pg (27.0-33.0); MEAN CORPUSCULAR HGB CONC 33.5 g/dl (32.0-36.5); MONO # 0.8 10^3/uL (0.0-0.8); NEUTROPHILS # 9.3 10^3/uL (1.5-8.5); NEUTROPHILS % 72.9 % (36.0-66.0); PLATELET COUNT, AUTOMATED 271 10^3/uL (150-450); RED BLOOD COUNT 4.24 10^6/uL (4.00-5.40); WHITE BLOOD COUNT 12.7 10^3/uL (4.0-10.0)
[2021-01-08 17:04] LABS: HEPATITIS C VIRUS ABY INDEX < 0.0 INDEX (<0.8); HIV 1&2 SCREEN CENTAUR NEGATIVE (NEGATIVE)
[2021-01-08 17:31] LABS: GC DNA AMPLIFICATION NEGATIVE (NEGATIVE)
== END ==
LOC: M PLALAB 11:30
PROVIDERS: ATTEND Obstetrics & Gynecology
DX: Z34.90 Encounter for supervision of normal pregnancy, unspecified, unspecified trimester (principal)

== ENCOUNTER → 2021-02-05 | Outpatient (CLI) | payer OTHER | LOC: M PLALAB 14:43 | PROVIDERS: ATTEND Specialist | DX: Z34.81 Encounter for supervision of other normal pregnancy, first trimester (principal); Z3A.00 Weeks of gestation of pregnancy not specified; Z53.9 Procedure and treatment not carried out, unspecified reason ==

== ENCOUNTER → 2021-04-12 | Outpatient (CLI) | payer OTHER | LOC: M WHC 12:01 | PROVIDERS: ATTEND Obstetrics & Gynecology | DX: Z36.9 Encounter for antenatal screening, unspecified (principal); Z3A.21 21 weeks gestation of pregnancy ==

== ENCOUNTER → 2021-05-23 | Outpatient (CLI) | payer OTHER ==
[2021-05-23 17:19] LABS: HEMATOCRIT 34.3 % (36.0-47.0); HEMOGLOBIN 11.4 g/dl (12.0-15.5); MEAN CORPUSCULAR HGB CONC 33.2 g/dl (32.0-36.5); MEAN CORPUSCULAR VOLUME 90.3 fl (80.0-96.0); PLATELET COUNT, AUTOMATED 271 10^3/uL (150-450); WHITE BLOOD COUNT 16.9 10^3/uL (4.0-10.0)
[2021-05-23 19:21] LABS: GC DNA AMPLIFICATION NEGATIVE (NEGATIVE)
== END ==
LOC: M PLALAB 13:37
PROVIDERS: ATTEND Specialist
DX: Z36.9 Encounter for antenatal screening, unspecified (principal); Z3A.00 Weeks of gestation of pregnancy not specified

== ENCOUNTER 2021-07-01 10:37 | Outpatient (CLI) | payer OTHER ==
[~2021-07-01] VITALS: Ht 165.1 cm; Wt 69.4 kg
[2021-07-01 11:04] VITALS: BP 132/70
[2021-07-01] MEDS ORDERED: PRENTAB9 PO (11:48)
[2021-07-01] MEDS ORDERED: TUMS750C5 PO (11:48)
[2021-07-01] MEDS ORDERED: HOME MED LIST COMPLETE! XX SCH (11:50)
[2021-07-01 13:07] VITALS: BP 115/57
== END 2021-07-01 14:24 | disposition home or self-care (01) ==
LOC: M LDO 10:37
PROVIDERS: ATTEND Advanced Practice Midwife
DX: O60.03 Preterm labor without delivery, third trimester (principal); O09.02 Supervision of pregnancy with history of infertility, second trimester; Z03.73 Encounter for suspected fetal anomaly ruled out; Z3A.32 32 weeks gestation of pregnancy

== ENCOUNTER → 2021-07-26 | Outpatient (REF) | payer OTHER ==
[~2021-07-26] MED LIST changes: +TUMS750C5 PO
== END ==
LOC: M SFHCWAGY 17:57
PROVIDERS: ATTEND Obstetrics & Gynecology
DX: Z34.83 Encounter for supervision of other normal pregnancy, third trimester (principal); Z3A.36 36 weeks gestation of pregnancy

== ENCOUNTER → 2021-07-26 | Outpatient (REF) | payer OTHER | LOC: M PLALAB 14:05 | PROVIDERS: ATTEND Obstetrics & Gynecology | DX: Z34.83 Encounter for supervision of other normal pregnancy, third trimester (principal); Z3A.36 36 weeks gestation of pregnancy ==

== ENCOUNTER → 2021-07-31 | Outpatient (CLI) | payer OTHER | LOC: M WHC 12:24 | PROVIDERS: ATTEND Obstetrics & Gynecology | DX: Z36.2 Encounter for other antenatal screening follow-up (principal); Z3A.36 36 weeks gestation of pregnancy ==

== ENCOUNTER → 2022-04-17 | Outpatient (REF) | payer OTHER | LOC: M SFHCWAGY 13:39 | PROVIDERS: ATTEND Nurse Practitioner Family | DX: Z12.4 Encounter for screening for malignant neoplasm of cervix (principal) ==

== ENCOUNTER 2022-08-01 12:32 | Day surgery (SDC) | payer OTHER ==
[~2022-08-01] VITALS: Ht 165.1 cm; Wt 59.1 kg
[~2022-08-01 12:32] MED LIST changes: +PRENTAB53 PO
[2022-08-01] MEDS ORDERED: LR 1,000 ML IV SCH ×2 (13:10→16:10)
[2022-08-01 13:39] LABS: HEMATOCRIT 38.8 % (36.0-47.0); HEMOGLOBIN 12.7 g/dl (12.0-15.5); MEAN CORPUSCULAR HEMOGLOBIN 28.7 pg (27.0-33.0); MEAN CORPUSCULAR HGB CONC 32.7 g/dl (32.0-36.5); MEAN CORPUSCULAR VOLUME 87.8 fl (80.0-96.0); PLATELET COUNT, AUTOMATED 306 10^3/uL (150-450); RED BLOOD COUNT 4.42 10^6/uL (4.00-5.40); WHITE BLOOD COUNT 8.9 10^3/uL (4.0-10.0)
[2022-08-01] MEDS ORDERED: LIDOCAINE 2% 100MG/5ML SDV (FOR ANES.) As Ordered ONE (14:15)
[2022-08-01] MEDS ORDERED: MIDAZOLAM INJ 2MG/2ML VIAL As Ordered ONE (14:15)
[2022-08-01] MEDS ORDERED: fentaNYL 100 MCG/2 ML INJECTION As Ordered ONE (14:15)
[2022-08-01] MEDS ORDERED: ACETAMINOPHEN 1000MG 100ML IV BAG As Ordered ONE (14:16)
[2022-08-01] MEDS ORDERED: KETOROLAC 60MG 2ML VIAL As Ordered ONE (14:16)
[2022-08-01] MEDS ORDERED: ROCURONIUM BROMIDE 50MG/5ML VIAL As Ordered ONE (14:16)
[2022-08-01] MEDS ORDERED: propofoL 200 MG/20 ML VIAL As Ordered ONE (14:16)
[2022-08-01] MEDS ORDERED: ONDANSETRON 4MG 2ML VIAL As Ordered ONE (14:16)
[2022-08-01] MEDS ORDERED: BUPIVACAINE HCL 0.25% 30ML VIAL As Ordered ONE (14:55)
[2022-08-01] MEDS ORDERED: OXYC1TAB23 PO (15:16)
[2022-08-01] MEDS ORDERED: IBUP80TA PO (15:19)
[2022-08-01] MEDS ORDERED: fentaNYL 100 MCG/2 ML INJECTION IV PRN (16:10)
[2022-08-01] MEDS ORDERED: ONDANSETRON 4MG 2ML VIAL IV PRN (16:10)
[2022-08-01] MEDS ORDERED: HYDROMORPHONE HCL 0.5 MG/ 0.5 ML SYRINGE IV PRN (16:10)
[2022-08-01] MEDS ORDERED: oxyCODONE 5MG TAB PO PRN (16:10)
[2022-08-01] MEDS ORDERED: PERCOCET 5MG/325MG TAB PO PRN (16:30)
[2022-08-01 17:43] VITALS: BP 106/59
[2022-08-01] MEDS ORDERED: KETOROLAC 30 MG/ML 1ML VIAL IV SCH (21:00)
== END 2022-08-01 18:03 | disposition home or self-care (01) ==
LOC: M SDC 12:32
PROVIDERS: ATTEND Obstetrics & Gynecology
DX: Z30.2 Encounter for sterilization (principal)
CPT/HCPCS: 36415; 58661; 81025; 85027; 86850; 86900; 86901; 88302; J0131; J1100; J1885; J2250; J2405; J3010

== ENCOUNTER → 2022-10-30 | Outpatient (CLI) | payer OTHER ==
[~2022-10-30] MED LIST changes: +IBUP80TA PO; +OXYC1TAB23 PO; +PROHANCE 279.3MG/ML 5ML VIAL ONE
== END ==
LOC: M PLAIMG 08:01
PROVIDERS: ATTEND Nurse Practitioner Family
DX: Z80.3 Family history of malignant neoplasm of breast (principal); Z12.39 Encounter for other screening for malignant neoplasm of breast
CPT/HCPCS: 77049; A9576

== ENCOUNTER → 2024-03-23 | Outpatient (CLI) | payer OTHER ==
[~2024-03-23] MED LIST changes: +GASTROGRAFIN SOLUTION 30ML ONE; +ISOVUE-370 76% 100ML VIAL ONE; -PROHANCE 279.3MG/ML 5ML VIAL ONE
== END ==
LOC: M PLAIMG 09:12
PROVIDERS: ATTEND Family Medicine
DX: R59.1 Generalized enlarged lymph nodes (principal); R10.817 Generalized abdominal tenderness; L95.8 Other vasculitis limited to the skin

== ENCOUNTER → 2024-04-27 | Outpatient (CLI) | payer OTHER ==
[~2024-04-27] MED LIST changes: -GASTROGRAFIN SOLUTION 30ML ONE; -ISOVUE-370 76% 100ML VIAL ONE
== END ==
LOC: M WHC 14:31
PROVIDERS: ATTEND Family Medicine
DX: N63.23 Unspecified lump in the left breast, lower outer quadrant (principal); L95.8 Other vasculitis limited to the skin; N63.20 Unspecified lump in the left breast, unspecified quadrant; Z80.3 Family history of malignant neoplasm of breast

== ENCOUNTER → 2024-05-12 | Outpatient (CLI) | payer OTHER ==
[2024-05-12 11:23] VITALS: TEMP 98.3
[2024-05-12 12:15] VITALS: BP 110/72; O2SAT 100
== END ==
LOC: M WHCPRO 10:42
PROVIDERS: ATTEND Family Medicine
DX: R92.1 Mammographic calcification found on diagnostic imaging of breast (principal); R92.8 Other abnormal and inconclusive findings on diagnostic imaging of breast; D48.62 Neoplasm of uncertain behavior of left breast; N63.21 Unspecified lump in the left breast, upper outer quadrant

== ENCOUNTER → 2025-03-07 | Outpatient (CLI) | payer OTHER | LOC: M WHC 12:33 | PROVIDERS: ATTEND Family Medicine | DX: N63.21 Unspecified lump in the left breast, upper outer quadrant (principal); R92.332 Mammographic heterogeneous density, left breast ==